=== PATIENT | male | born 1935 | race Caucasian/White ===

== ENCOUNTER 2018-03-10 06:07 | Emergency (ER) | payer OTHER ==
[2018-03-10 08:07] VITALS: BP 135/76
== END 2018-03-10 08:07 | disposition home or self-care (01) ==
LOC: ED 06:07
DX: Z46.6 Encounter for fitting and adjustment of urinary device (principal); R10.30 Lower abdominal pain, unspecified

== ENCOUNTER 2018-03-10 17:35 | Emergency (ER) | payer OTHER ==
[~2018-03-10] VITALS: Ht 182.9 cm; Wt 79.4 kg
[2018-03-10 17:53] VITALS: Ht 182.9 cm; Wt 79.4 kg
[2018-03-10 21:47] VITALS: BP 135/82
== END 2018-03-10 21:47 | disposition home or self-care (01) ==
LOC: ED 17:35
DX: T83.098A Other mechanical complication of other urinary catheter, initial encounter (principal); I10 Essential (primary) hypertension; N32.2 Vesical fistula, not elsewhere classified
CPT/HCPCS: J3010; Q0162

== ENCOUNTER 2018-03-11 23:28 | Emergency (ER) | payer OTHER ==
[~2018-03-11] VITALS: Ht 182.9 cm; Wt 81.2 kg
[2018-03-11 23:52] VITALS: Ht 182.9 cm; Wt 81.2 kg
[2018-03-12 01:46] VITALS: BP 123/77
== END 2018-03-12 01:46 | disposition home or self-care (01) ==
LOC: ED 23:28
DX: T83.091A Other mechanical complication of indwelling urethral catheter, initial encounter (principal); R33.9 Retention of urine, unspecified; I10 Essential (primary) hypertension

== ENCOUNTER 2018-03-29 15:41 | Emergency (ER) | payer OTHER ==
[~2018-03-29] VITALS: Ht 182.9 cm; Wt 72.6 kg
[2018-03-29 15:47] VITALS: Ht 182.9 cm; Wt 72.6 kg
[2018-03-29 17:46] VITALS: BP 130/74
== END 2018-03-29 17:46 | disposition home or self-care (01) ==
LOC: ED 15:41
DX: K94.09 Other complications of colostomy (principal); I10 Essential (primary) hypertension